=== PATIENT | female | born 1965 | race Caucasian/White ===

== ENCOUNTER → 2016-06-07 | Outpatient (CLI) | payer BC ==
[~2016-06-07] MED LIST: LRT10T PO; MNTL10T PO; PANT40TA PO; SCR1T1 PO
--- NOTE | 2016-06-07 12:46 | Diagnostic Imaging Report ---
INDICATION: Followup cervical polyp removal, abnormal bleeding. COMPARISON: None. DISCUSSION: Transabdominal and transvaginal sonographic evaluation of the pelvis was performed. The uterus is normal in echotexture and size measuring 7.3 x 4.1 x 3.3 cm. Normal endometrial thickness measuring 0.2 cm. Neither ovary was visualized, obscured by bowel. Suspect small exophytic polyp along the posterior uterus measuring 1.5 x 1.3 x 0.9 cm. No endometrial polyp or abnormal soft tissue identified. No abnormal adnexal mass or fluid. IMPRESSION: 1. Probable small exophytic posterior uterine fibroid. 2. Nonvisualization of the bilateral ovaries. Dictated by: Dictated on workstation # [id number]
== END ==
LOC: RAD 10:59
PROVIDERS: ATTEND Obstetrics & Gynecology
DX: N93.8 Other specified abnormal uterine and vaginal bleeding (principal); N84.1 Polyp of cervix uteri
CPT/HCPCS: 76830; 76856

== ENCOUNTER 2017-04-19 13:20 | Emergency (ER) | payer BC ==
[~2017-04-19] VITALS: Ht 167.6 cm; Wt 89.4 kg
--- OUTSIDE RECORDS SUMMARY | 2017-04-19 13:46 | XMS REPORT | Continuity of Care Document ---
Author Author [facility] Organization [facility] Address Unknown Phone Unavailable Allergies Active Description Code Type Severity Reaction Onset Reported/Identified Relationship to Patient Clinical Status Yes caffeine [id number] Drug Allergy Unknown N/A 07/13/2007 Medications There is no data. Problems Date Dx Coded Attending Type Code Diagnosis Diagnosed By 01/14/2015 LIANNE MABRY Ot M79.672 02/12/2015 Ot 473.0 02/12/2015 Ot V76.12 02/12/2015 Ot 793.80 02/12/2015 Ot 473.9 02/12/2015 NIRMALA WASHINGTON MD Ot 530.11 02/12/2015 NIRMALA WASHINGTON MD Ot 535.50 02/12/2015 NIRMALA WASHINGTON MD Ot 553.3 02/12/2015 NIRMALA WASHINGTON MD Ot V72.84 02/12/2015 LIANNE MABRY Ot M79.672 06/17/2015 Ot 473.9 CHRONIC SINUSITIS NOS 06/17/2015 NIRMALA WASHINGTON MD Ot 530.11 REFLUX ESOPHAGITIS 06/17/2015 NIRMALA WASHINGTON MD Ot 535.50 UNSP GASTRITIS GASTRODUODENITIS W/O ME 06/17/2015 NIRMALA WASHINGTON MD Ot 553.3 DIAPHRAGMATIC HERNIA 06/17/2015 NIRMALA WASHINGTON MD Ot V72.84 EXAM PRE-OPERATIVE NOS 06/17/2015 LIANNE MABRY Ot M79.672 PAIN IN LEFT FOOT 12/08/2015 Ot 473.9 CHRONIC SINUSITIS NOS 12/08/2015 NIRMALA WASHINGTON MD Ot 530.11 REFLUX ESOPHAGITIS 12/08/2015 NIRMALA WASHINGTON MD Ot 535.50 UNSP GASTRITIS GASTRODUODENITIS W/O ME 12/08/2015 NIRMALA WASHINGTON MD Ot 553.3 DIAPHRAGMATIC HERNIA 12/08/2015 NIRMALA WASHINGTON MD Ot V72.84 EXAM PRE-OPERATIVE NOS 12/08/2015 LIANNE MABRY JAMISON Ot M79.672 PAIN IN LEFT FOOT 12/09/2015 SARAH AMOR DO Ot M54.2 CERVICALGIA 01/15/2016 SARAH AMOR DO Ot M54.2 CERVICALGIA 06/24/2016 ISREAL STRATTON DO Ot N84.1 POLYP OF CERVIX UTERI 06/24/2016 ISRAEL STRATTON DO Ot N93.8 OTHER SPECIFIED ABNORMAL UTERINE AND VAG Procedures There is no data. Results There is no data. Encounters ACCT No. Visit Date/Time Discharge Status Pt. Type Provider Facility Loc./Unit Complaint [id number] 06/07/2016 10:59:00 06/07/2016 23:59:59 CLS Outpatient ISRAEL STRATTON DO [facility] RAD ABN UTERINE BLEEDING [id number] 12/07/2015 15:16:00 12/07/2015 23:59:59 CLS Outpatient SARAH AMRO DO [facility] RAD NECK PAIN [id number] 01/08/2015 11:18:00 01/08/2015 23:59:59 CLS Outpatient SHANTHI SPENCEP [facility] OCC [id number] 01/01/2015 16:32:00 01/01/2015 23:59:59 CLS Outpatient LIANNE MABRY JAMISON [facility] RAD LEFT FOOT PAIN [id number] 04/19/2013 09:41:00 04/19/2013 23:59:59 CLS Outpatient NIRMALA WASHINGTON MD [facility] SDC DYSPHAGIA [id number] 04/17/2013 07:34:00 04/17/2013 23:59:59 CLS Outpatient NIRMALA WASHINGTON MD [facility] PREOP DYSPHAGIA [id number] 02/12/2015 09:18:00 Document Registration [id number] 02/12/2015 09:18:00 Document Registration [id number] 05/02/2012 11:08:00 Document Registration [id number] 12/15/2009 09:59:00 Document Registration [id number] 11/30/2009 09:54:00 Document Registration [id number] 11/28/2009 10:55:00 Document Registration
--- OUTSIDE RECORDS SUMMARY | 2017-04-19 13:46 | XMS REPORT ---
Author JAY Ortiz [facility] eClinicalWorks Address Unknown Phone Unavailable Care Team Providers Care Herb Digger Name Role Phone JAY CONTRERAS CP Unavailable Allergies No Known Allergies Problems Problem Type Condition Code Onset Dates Condition Status Assessment Encounter for immunization Z23 Active Medications No Known Medications Procedures Procedure Coding System Code Date SINGLE IMMUNIZATION ADMIN CPT-4 98260 September 19, 2015 TDAP (BOOSTRIX) CPT-4 69609 September 19, 2015 Results No Known Results Immunizations Vaccine Administration Date TDAP (BOOSTRIX) September 19, 2015 Summary Purpose eClinicalWorks Submission
--- NOTE | 2017-04-19 13:54 | ED Upper Extremity ---
General Chief Complaint: Upper Extremity Stated Complaint: LEFT ARM AND WRIST PAIN/FALL Source: patient Exam Limitations: no limitations History of Present Illness Date Seen by Provider: Apr 19, 2017 Time Seen by Provider: 13:45 Initial Comments Patient here with complaint of left wrist pain after falling while trying to open up a garage door. She fell backwards onto the left wrist. Apparently her hand was extended up over her head she fell backwards and she hit something and twisted. She complains of pain and swelling as well as some deformity at the distal left forearm. She landed on her bottom person may have hit her head but not hard. She did not lose consciousness. She is not nauseated. She is not on blood thinners. She has no abrasions or lacerations. Onset: just prior to arrival (45 min ago) Severity: moderate Pain/Injury Location: left forearm, left wrist Method of Injury: fell Modifying Factors: Improves With Immobilization, Worse With Movement Allergies and Home Medications Allergies Coded Allergies: caffeine (Verified Allergy, Unknown, 07/13/07) Home Medications Loratadine 10 Mg Tab, 10 MG PO DAILY, (Reported) Montelukast Sodium 10 Mg Tab, 10 MG PO DAILY, (Reported) Pantoprazole Sodium 40 Mg Tablet.dr, 40 MG PO DAILY, #90 Prescribed by: MARSHA GROSSMAN on 04/19/13 1257 Sucralfate 1 Gm Tab, 1 GM PO QID, #120 Prescribed by: MARSHA GROSSMAN on 04/19/13 1255 Constitutional: see HPI, No chills, No fever EENTM: no symptoms reported Respiratory: no symptoms reported Cardiovascular: no symptoms reported Gastrointestinal: no symptoms reported Musculoskeletal: see HPI, joint pain, joint swelling, muscle pain, muscle stiffness Skin: No change in color, No lesions Psychiatric/Neurological: No Symptoms Reported Past Oktqdrd-Twctlv-Gckzwk Hx Patient Social History Alcohol Use: Occasionally Uses Recreational Drug Use: No Smoking Status: Never a Smoker Recent Foreign Travel: No Contact w/Someone Who Travel: No Immunizations Up To Date Date of Influenza Vaccine: Feb 07, 2014 Surgeries History of Surgeries: No Respiratory History of Respiratory Disorde: Yes (ASTHMA) Cardiovascular History of Cardiac Disorders: No Gastrointestinal History of Gastrointestinal Di: No Musculoskeletal History of Musculoskeletal Dis: No Endocrine History of Endocrine Disorders: No Reviewed Nursing Assessment Reviewed/Agree w Nursing PMH: Yes Family Medical History Significant Family History: No Pertinent Family Hx Physical Exam Vital Signs Vital Signs - First Documented 04/19/17 13:30 Temp 95.4 Pulse 82 Resp 18 B/P (MAP) 108/46 (66) Pulse Ox 95 Capillary Refill : General Appearance: WD/WN, no apparent distress HEENT: PERRL/EOMI, TMs normal Neck: non-tender, full range of motion, supple, normal inspection Cardiovascular: regular rate, rhythm, no murmur Respiratory: lungs clear, normal breath sounds Gastrointestinal: non tender, soft Shoulder: normal inspection, non-tender Elbow/Forearm: non-tender, no evidence of injury, Left Wrist: Yes deformity, Yes limited ROM, Yes pain, Yes soft tissue tenderness, Yes swelling (all findings on the left wrist/distal forearm area) Hand: no evidence of injury, normal ROM, Right, Left Neurologic/Psychiatric: alert, oriented x 3 Skin: normal color, warm/dry Splinting and Joint Reduction : Pre-Proc Neuro Vasc Exam: normal Post-Proc Neuro Vasc Exam: normal Arm Sling: Medium Hand-Made Type: sugar tong plaster Progress/Results/Core Measures Results/Orders My Orders Orders - RAKAN BRITO MD Forearm, Left, 2 Views (04/19/17 13:51) Wrist, Left, 3 Views Or More (04/19/17 14:10) Hydrocodone/Apap 5/325 Tablet (Lortab 5 (04/19/17 15:25) Vital Signs/I&O Vital Sign - Last 12Hours 04/19/17 13:30 Temp 95.4 Pulse 82 Resp 18 B/P (MAP) 108/46 (66) Pulse Ox 95 Progress Note : Progress Note Seen and evaluated. X-ray left forearm. Patient declined pain medicine at this time. Ice pack applied. 1520: X-rays do show distal radius and ulna fracture. Sugar tong splint applied and patient placed in sling. I did discuss the case with Dr. Lord and he will see the patient next Monday in clinic. Hydrocodone 5/325 one tab by mouth given. We will give him a small prescription for pain. Discharged home with return precautions. Patient verbalize understanding instructions and agreement with plan. Diagnostic Imaging Diagonstic Imaging: Xray Plain Films/CT/US/NM/MRI: other Comments [facility] [place] [place] NAME: JULIA TRINH [facility] REC#: [id number] PT STATUS: REG ER : 1965 PHYSICIAN: RAKAN BRITO MD ADMIT DATE: 04/19/17/ER Draft Date of Exam:04/19/17 WRIST, LEFT, 3 VIEWS OR MORE INDICATION: Injury with pain FINDINGS: There is comminuted intra-articular fractures of the distal radius without significant articular offset. There is an avulsion at the base of the ulnar styloid. Proximal and distal carpal rows appeared nonacute. IMPRESSION: Impacted and slightly dorsally angulated comminuted intra-articular distal radial fractures with ulnar styloid avulsion. Dictated on workstation # [id number] Dict: 04/19/171425 Trans: 04/19/171427 TELMA [id number] Interpreted by: AARTI COELHO Electronically signed by: Jengonscurtis Imaging: Xray Plain Films/CT/US/NM/MRI: forearm Comments [facility] [place], [place] NAME: JULIA TRINH [facility] REC#: [id number] PT STATUS: REG ER : 1965 PHYSICIAN: RAKAN BRITO MD ADMIT DATE: 04/19/17/ER Draft Date of Exam:04/19/17 FOREARM, LEFT, 2 VIEWS INDICATION: Injury with pain FINDINGS: There is a comminuted intra-articular fractures of the distal radius with avulsion of the ulnar styloid. The midshaft and proximal radius and ulna and the elbow appeared intact. IMPRESSION: Comminuted mildly impacted intra-articular distal radial fractures with ulnar styloid avulsion. Dictated on workstation # [id number] Dict: 04/19/171425 Trans: 04/19/171426 TELMA [id number] Interpreted by: AARTI COELHO Electronically signed by: Departure Impression Impression: Primary Impression: Fracture of radius and ulna Qualified Codes: S52.92XA - Unspecified fracture of left forearm, initial encounter for closed fracture; S52.202A - Unspecified fracture of shaft of left ulna, initial encounter for closed fracture Disposition: 01 HOME, SELF-CARE Condition: Stable Departure-Patient Inst. Decision time for Depature: 15:32 Referrals: NATACHA PEREZ MD (PCP/Family) Primary Care Physician BERNARDINO LORD DO Patient Instructions: Forearm Fracture (DC) Add. Discharge Instructions: All discharge instructions reviewed with patient and/or family. Voiced understanding. Follow-up with Dr. Lord next Monday. Call his clinic today for appointment time. Let them know that he is requesting to see her next Monday. Continue to elevate the arm as much as possible to reduce swelling. You may use ice packs over the affected area 20 minutes per hour for the next one to 2 days as needed to decrease swelling and pain. Take prescribed pain medicine as directed. If you're not taking that medicine you may supplement with Tylenol 1000 mg every 6 hours as needed for pain. You may also take ibuprofen 800 mg every 8 hours as needed for pain. Return for worse pain, swelling, weakness, numbness or other concerns as needed. Scripts Hydrocodone Bit/Acetaminophen (Hydrocodone/Acetaminophen 5/325mg Tablet) 1 Tab Tab 1-2 EACH PO Q6H Y for PAIN-MODERATE, #15 TAB 0 Refills Prov: RAKAN BRITO MD 04/19/17 Copy Copies To 1: BERNARDINO LORD DO Copies To 2: NATACHA PEREZ MD, TIMOTHY D MD Apr 19, 2017 13:54
--- NOTE | 2017-04-19 14:28 | Diagnostic Imaging Report ---
INDICATION: Injury with pain FINDINGS: There is a comminuted intra-articular fractures of the distal radius with avulsion of the ulnar styloid. The midshaft and proximal radius and ulna and the elbow appeared intact. IMPRESSION: Comminuted mildly impacted intra-articular distal radial fractures with ulnar styloid avulsion. Dictated by: Dictated on workstation # [id number]
--- NOTE | 2017-04-19 14:29 | Diagnostic Imaging Report ---
INDICATION: Injury with pain FINDINGS: There is comminuted intra-articular fractures of the distal radius without significant articular offset. There is an avulsion at the base of the ulnar styloid. Proximal and distal carpal rows appeared nonacute. IMPRESSION: Impacted and slightly dorsally angulated comminuted intra-articular distal radial fractures with ulnar styloid avulsion. Dictated by: Dictated on workstation # [id number]
[2017-04-19] MEDS ORDERED: HYDROcodone/APAP 5 MG/325 MG (LORTAB) TAB PO STA (15:25)
[2017-04-19] MEDS ORDERED: ACHD5005 PO (15:34)
[2017-04-19 15:42] VITALS: BP 110/68
== END 2017-04-19 15:42 | disposition home or self-care (01) ==
LOC: EDUNIT# 13:20 → ER 13:21
DX: S52.212A Greenstick fracture of shaft of left ulna, initial encounter for closed fracture (principal); S52.612A Displaced fracture of left ulna styloid process, initial encounter for closed fracture; J45.909 Unspecified asthma, uncomplicated; Z88.8 Allergy status to other drugs, medicaments and biological substances; W01.10XA Fall on same level from slipping, tripping and stumbling with subsequent striking against unspecified object, initial encounter
CPT/HCPCS: 29125; 73090; 73110

== ENCOUNTER → 2017-04-27 | Outpatient (CLI) | payer BC ==
[~2017-04-27] MED LIST changes: +ACHD5005 PO
--- NOTE | 2017-04-27 11:53 | Diagnostic Imaging Report ---
PROCEDURE: CT head without contrast. TECHNIQUE: Multiple contiguous axial images were obtained through the brain without the use of intravenous contrast. INDICATION: Fall with head injury Ventricles and sulci are within normal limits for size. No hemorrhage is identified. There is no abnormal mass effect or shift of midline structures. There is no CT evidence of an acute infarct. Note is made of mural thickening within the visualized paranasal sinuses with air-fluid level in the left maxillary antrum. IMPRESSION: Pansinusitis without CT evidence of acute intracranial abnormality. Dictated by: Dictated on workstation # [id number]
== END ==
LOC: RAD 11:07
PROVIDERS: ATTEND Nurse Practitioner Family
DX: S09.90XA Unspecified injury of head, initial encounter (principal); J32.4 Chronic pansinusitis; W19.XXXA Unspecified fall, initial encounter
CPT/HCPCS: 70450

== ENCOUNTER 2017-09-01 15:45 | Outpatient (RCR) | payer BC | END 2017-09-06 | disposition home or self-care (01) | PROVIDERS: ATTEND Orthopaedic Surgery Orthopaedic Trauma | DX: S52.502D Unspecified fracture of the lower end of left radius, subsequent encounter for closed fracture with routine healing (principal) ==

== ENCOUNTER 2017-11-23 09:39 | Outpatient (RCR) | payer BC | END 2017-11-23 10:30 | disposition home or self-care (01) | PROVIDERS: ATTEND Orthopaedic Surgery Orthopaedic Trauma | DX: S52.502D Unspecified fracture of the lower end of left radius, subsequent encounter for closed fracture with routine healing (principal) ==

== ENCOUNTER → 2018-04-06 | Outpatient (CLI) | payer BC ==
--- NOTE | 2018-04-09 12:28 | Diagnostic Imaging Report ---
Indication: Routine screening. Comparison is made with prior mammogram from 12/04/2010 and 11/28/2009. 2-D and 3-D bilateral screening mammography was performed with CAD. Scattered fibroglandular densities are identified bilaterally. Circumscribed nodule in the outer aspect of the left breast appears stable and consistent with benign etiology. There is a density in the far posterior aspect of the left breast near the chest wall on the MLO view, indeterminate. This may represent fibroglandular tissue. Additional views are recommended. The right breast is unremarkable. No suspicious calcifications are seen. Impression: BI-RADS 0 Left breast density. Additional views recommended for further evaluation. ACR BI-RADS Category 0: Incomplete. (Needs additional imaging evaluation). Result letter will be mailed to the patient. Note: At least 10% of breast cancer is not imaged by mammography. Dictated by: Dictated on workstation # [id number]
== END ==
LOC: RAD 15:05
PROVIDERS: ATTEND Nurse Practitioner Family
DX: Z12.31 Encounter for screening mammogram for malignant neoplasm of breast (principal); R92.8 Other abnormal and inconclusive findings on diagnostic imaging of breast
CPT/HCPCS: 77067

== ENCOUNTER → 2018-04-23 | Outpatient (CLI) | payer BC ==
--- NOTE | 2018-04-23 20:13 | Diagnostic Imaging Report ---
INDICATION: Abnormal screening mammogram. COMPARISON: Comparison made with prior examinations from 12/04/2010 back through 08/17/2007. The current study was also evaluated with a Computer Aided Detection (CAD) system. FINDINGS: Spot compression views and true lateral view of the left breast were obtained. The previously described density appears to be superimposed fibroglandular tissue. There is no discrete mass, spiculated lesion, or suspicious calcification identified. IMPRESSION: Benign. The patient should resume bilateral screening mammography in March 2019. ACR BI-RADS Category 2: Benign findings. Result letter will be mailed to the patient. Note: At least 10% of breast cancer is not imaged by mammography. Dictated by: Dictated on workstation # [id number]
== END ==
LOC: RAD 13:49
PROVIDERS: ATTEND Nurse Practitioner Family
DX: R92.2 Inconclusive mammogram (principal)

== ENCOUNTER → 2018-06-22 | Outpatient (CLI) | payer BC ==
--- NOTE | 2018-06-22 12:23 | Diagnostic Imaging Report ---
PROCEDURE: US left lower extremity venous. TECHNIQUE: Multiple real-time grayscale images were obtained over the left lower extremity in various projections. Additional duplex Doppler and color Doppler images were also obtained. INDICATION: Left calf pain. Swelling. FINDINGS: The left lower extremity femoropopliteal deep venous system was widely patent. Normal vascular compressibility, color flow and waveforms present. No visualized superficial thrombus. No mass or fluid collections documented. IMPRESSION: Normal negative unilateral left lower extremity venous Doppler and ultrasound exam. Dictated by: Dictated on workstation # [id number]
== END ==
LOC: RAD 11:17
PROVIDERS: ATTEND Nurse Practitioner Family
DX: M79.89 Other specified soft tissue disorders (principal)

== ENCOUNTER 2020-01-22 15:13 | Outpatient (CLI) | payer BC | END 2020-01-22 16:23 | disposition home or self-care (01) | LOC: SLEEP 15:13 | PROVIDERS: ATTEND Nurse Practitioner Family | DX: G47.10 Hypersomnia, unspecified (principal) ==

== ENCOUNTER → 2020-07-08 | Outpatient (CLI) | payer BC ==
--- NOTE | 2020-07-09 09:21 | Diagnostic Imaging Report ---
INDICATION: Routine screening. Comparison is made with prior mammogram from 04/06/2018. 2-D and 3-D bilateral screening mammography was performed with CAD. Scattered fibroglandular densities are identified bilaterally. Benign nodular densities in the outer aspects of both breasts appears stable. No spiculated mass or malignant appearing microcalcifications are seen. Axillae are unremarkable. IMPRESSION: BI-RADS Category 2 No mammographic features suspicious for malignancy are identified. ACR BI-RADS Category 2: Benign findings. Result letter will be mailed to the patient. Note: At least 10% of breast cancer is not imaged by mammography. Dictated by: Dictated on workstation # [id number]
== END ==
LOC: RAD 12:29
PROVIDERS: ATTEND Nurse Practitioner Family
DX: Z12.31 Encounter for screening mammogram for malignant neoplasm of breast (principal)
CPT/HCPCS: 77063; 77067

== ENCOUNTER → 2022-02-08 | Outpatient (CLI) | payer BC ==
[2022-02-08 10:11] VITALS: BP 118/20
== END ==
LOC: CARD 08:08
PROVIDERS: ATTEND Internal Medicine Cardiovascular Disease
DX: R07.89 Other chest pain (principal)
CPT/HCPCS: C8929; C8930; 93306

== ENCOUNTER → 2022-09-23 | Outpatient (CLI) | payer BC ==
--- NOTE | 2022-09-23 11:09 | Diagnostic Imaging Report ---
PROCEDURE: US left lower extremity venous. TECHNIQUE: Multiple real-time grayscale images were obtained over the left lower extremity in various projections. Additional duplex Doppler and color Doppler images were also obtained. INDICATION: Left leg swelling The veins of the left leg have good color filling and compressibility. There is phasic flow and a normal response to augmentation. IMPRESSION: Negative venous Doppler left leg Dictated by: Dictated on workstation # [id number]
== END ==
LOC: RAD 10:23
PROVIDERS: ATTEND Nurse Practitioner Family
DX: R22.42 Localized swelling, mass and lump, left lower limb (principal)

== ENCOUNTER → 2022-11-30 | Outpatient (CLI) | payer BC ==
--- NOTE | 2022-11-30 13:40 | Diagnostic Imaging Report ---
EXAMINATION: Left ankle 3 views HISTORY: Ankle pain COMPARISON: 01/08/2015 FINDINGS: There is mild bimalleolar swelling. The alignment is normal. No fracture is seen. The mortise is intact. Talar dome is normal. Joint spaces are normal. IMPRESSION: 1. No fracture. Dictated by: Dictated on workstation # [id number]
--- NOTE | 2022-11-30 15:46 | Diagnostic Imaging Report ---
INDICATION: LOCALIZED SWELLING OF LEFT FOOT COMPARISON: None. FINDINGS: 3 views of the left foot demonstrate no acute fracture or dislocation. There are no focal osseous lesions. There is no soft tissue swelling. Joint spaces are well maintained. No radiopaque foreign bodies are seen. IMPRESSION: No acute fractures or dislocations of the left foot. Dictated by: Dictated on workstation # [id number]
== END ==
LOC: RAD 11:34
PROVIDERS: ATTEND Physician Assistant
DX: M25.572 Pain in left ankle and joints of left foot (principal); M25.472 Effusion, left ankle
CPT/HCPCS: 73610; 73630